=== PATIENT | male | born 1985 | race Two or more races ===

== ENCOUNTER → 2024-06-17 | Outpatient (BNVA) | payer MEDICAID, SELFPAY | END | disposition home or self-care (01) | PROVIDERS: PCP Nurse Practitioner Primary Care; Referring Provider Nurse Practitioner Primary Care; Visit Provider Urology | DX: N40.1 Benign prostatic hyperplasia with lower urinary tract symptoms (principal); N13.8 Other obstructive and reflux uropathy; R32 Unspecified urinary incontinence; N31.9 Neuromuscular dysfunction of bladder, unspecified; G80.9 Cerebral palsy, unspecified; Z99.3 Dependence on wheelchair | CPT/HCPCS: 99212; G0463 ==

== ENCOUNTER → 2024-07-31 | Outpatient (CLI) | payer MEDICAID, SELFPAY ==
--- NOTE | 2024-07-31 11:00 | XR_ITS ---
Examination: CT abdomen with intravenous contrast CT pelvis with intravenous contrast 2-D coronal reconstructions 2-D sagittal reconstructions Date and time of exam:July 31, 2024 1049 hours INDICATIONS: Diagnosis neuromuscular dysfunction urinary bladder, urinary tract infections 2 years. CTDI: vol (mGy) 17.6 DLP: (mGycm) 1017 Technique: Multiple axial sections of the abdomen and pelvis have been obtained. 64 slice high-resolution scanner used. 3 mm axial sections have been obtained, post intravenous injection 60 cc [id number] 2-D sagittal, coronal reconstructions obtained. Low dose protocols were performed. One or more of the following dose reduction techniques were used; automated exposure control, adjustment of the mA and/or KV according to patient size, use of iterative reconstruction technique. Findings: Mild parenchymal disease left base, pneumonia versus scarring No focal liver or splenic lesion Contracted gallbladder No pancreatic or adrenal mass Considerable patient motion on this study No hydronephrosis renal or ureteral calculi Aorta normal size No bowel obstruction Diffuse wall thickening involving the colon and rectum Contrast in the urinary bladder Transverse prostate dimension 4.9 cm with enhancing central prostate nodule 10 mm Right inguinal hernia Severe thoracic dextroscoliosis IMPRESSION: Pneumonia versus parenchymal scarring left base No renal or ureteral calculi, no hydronephrosis No bladder mass or bladder calculi 10 mm enhancing prostate nodule, recommend transrectal prostate sonography follow-up Nonspecific colitis proctitis pattern, clinical correlation and follow-up advised
== END | disposition home or self-care (01) ==
LOC: CCTX 10:09
PROVIDERS: PCP Urology; Referring Provider Urology; Visit Provider Urology
DX: N31.9 Neuromuscular dysfunction of bladder, unspecified (principal); N40.2 Nodular prostate without lower urinary tract symptoms
CPT/HCPCS: 74177; A4649; Q9967

== ENCOUNTER → 2025-02-17 | Outpatient (BNVA) | payer MEDICAID, SELFPAY | END | disposition home or self-care (01) | PROVIDERS: PCP Nurse Practitioner Primary Care; Referring Provider Nurse Practitioner Primary Care; Visit Provider Urology | DX: R32 Unspecified urinary incontinence (principal); N31.9 Neuromuscular dysfunction of bladder, unspecified; N40.1 Benign prostatic hyperplasia with lower urinary tract symptoms; N13.8 Other obstructive and reflux uropathy; Z99.3 Dependence on wheelchair; G80.9 Cerebral palsy, unspecified | CPT/HCPCS: 99212; G0463 ==

== ENCOUNTER → 2025-03-24 | Outpatient (CLI) | payer MEDICAID, SELFPAY ==
--- NOTE | 2025-03-24 15:31 | XR_ITS ---
EXAMINATION: AP chest single view TECHNIQUE: AP upright sitting portable chest single view Date and time: March 24, 2025 1542 hours INDICATIONS: Pneumonia last week FINDINGS: Atelectasis left lower lung zone Mild prominence cardiac contour Mild vascular congestion. No lobar pneumonia IMPRESSION: No pneumonia identified
== END | disposition home or self-care (01) ==
PROVIDERS: PCP Nurse Practitioner Primary Care; Referring Provider Nurse Practitioner Primary Care; Visit Provider Nurse Practitioner Primary Care
DX: J18.9 Pneumonia, unspecified organism (principal)
CPT/HCPCS: 71046